=== PATIENT | male | born 1955 | race Hispanic/Latino ===

== ENCOUNTER 2021-10-22 10:03 | Emergency (ER) | payer OTHER, BC ==
[~2021-10-22 10:03] MED LIST: Iopamidol 370 76% 100 ML VIAL ONE
[2021-10-22] MEDS ORDERED: Boostrix 0.5 ML (Tdap) VIAL ONE (10:30)
[2021-10-22] MEDS ORDERED: Fentanyl 100 MCG/2 ML VIAL ONE (10:30)
[2021-10-22 10:50] LABS: #Basophils 0.1 thou/uL (0.0-0.2); #Lymphocytes 1.5 thou/uL (1.20-3.40); #Monocytes 0.9 thou/uL (0.11-0.59); #Neutrophils 12.5 thou/uL (1.40-6.50); %Basophils 0.7 % (0.0-1.0); %Eosinophils 0.2 % (0.0-10.0); %Lymphocytes 10.2 % (21.0-51.0); %Neutrophils 82.9 % (42.0-75.0); Hemoglobin 14.7 g/dL (14.0-18.0); Mean Corpuscular HGB CONC 32.2 g/dL (32.0-36.0); Mean Corpuscular Hemoglobin 30.3 pg (27.0-31.0); Mean Corpuscular Volume 94.2 fL (78.0-98.0); Mean Platelet Volume 16.3 fL (7.4-10.4); Platelet Count 184 thou/uL (130-400); RBC Distribution Width 12.8 % (11.5-14.5); Red Blood Cell (RBC) Count 4.84 mill/uL (4.70-6.10); White Blood Cell (WBC) Count 15.1 thou/uL (4.8-10.8)
[2021-10-22] MEDS ORDERED: Morphine 4 MG/ML VIAL ONE (11:13)
[2021-10-22 11:15] LABS: ALT (SGPT) 49 U/L (8-55); AST (SGOT) 39 U/L (5-34); Albumin 4.7 g/dL (3.4-4.8); Alkaline Phosphatase 68 U/L (40-110); Anion Gap 19 mmol/L (10-20); BUN (Urea Nitrogen) 17 mg/dL (8.4-25.7); Bilirubin, Total 1.1 mg/dL (0.2-1.2); CK (CPK) 517 U/L (30-200); Calc. Creatinine Clearance 0 mL/min (70-130); Calcium 9.4 mg/dL (7.8-10.44); Carbon Dioxide 21 mmol/L (23-31); Chloride 103 mmol/L (98-107); Glucose 147 mg/dL (80-115); Lipase 9 U/L (8-78); Potassium 3.9 mmol/L (3.5-5.1); Protein, Total 7.7 g/dL (5.8-8.1); Sodium 139 mmol/L (136-145)
[2021-10-22 11:43] LABS: INR-International Normal Ratio 1.1; Prothrombin Time 14.3 sec (12.0-14.7)
[2021-10-22 11:44] LABS: PTT 25.7 sec (22.9-36.1)
[2021-10-22] MEDS ORDERED: Sodium Chloride 0.9% 1,000 ML ONE (11:48)
[2021-10-22] MEDS ORDERED: Piperacillin/Tazobactam 3.375 GM VIAL ONE (11:48)
[2021-10-22] MEDS ORDERED: Sodium Chloride 0.9% 0 ML ONE ×2 (11:48→11:49)
[2021-10-22] MEDS ORDERED: Sodium Chloride 0.9% 100 ML ONE (11:55)
== END 2021-10-22 12:15 | disposition short-term general hospital (02) ==
LOC: NAV ERS 10:03
DX: S22.41XA Multiple fractures of ribs, right side, initial encounter for closed fracture (principal); S27.0XXA Traumatic pneumothorax, initial encounter; E78.5 Hyperlipidemia, unspecified; V86.59XA Driver of other special all-terrain or other off-road motor vehicle injured in nontraffic accident, initial encounter
CPT/HCPCS: 70450; 71260; 72125; 74177; 80053; 82550; 83690; 85025; 85610; 85730; 90471; 90715; 96365; 96374; 96375; J2270; J2543; J3010; J3490; J7050; Q9967